=== PATIENT | female | born 1990 | race Caucasian/White ===

== ENCOUNTER → 2019-09-03 12:00 | Outpatient (CLI) | payer BC, SELFPAY ==
--- NOTE | ~2019-09-03 | MR_ITS ---
EXAMINATION: MR brain/brain stem wo/w con DATE: 09/03/2019 13:16 INDICATION: Aphasia. Dizziness. TECHNIQUE: Magnetic resonance imaging (MRI) of the brain and brainstem was performed without and with 10 mL MultiHance intravenous contrast. Sequences included sagittal and axial T1-weighted FLAIR, axia l T1-weighted FSE, axial diffusion-weighted FS EPI, sagittal T2-weighted FLAIR, axial T2*-weighted GR E, axial T2-weighted FLAIR Propeller, and axial T2-weighted Propeller. Postcontrast sequences include d axial, coronal, and sagittal T1-weighted FSE. Apparent diffusion coefficient (ADC) maps were create d. COMPARISON: None. FINDINGS: There is no intracranial hemorrhage, acute infarction, or abnormal intracranial mass lesion . 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 The ventricles are normal in size. The paranasal sinuses are clear. The orbits are normal. The mastoid air cells are normal. IMPRESSION: 1. Normal brain. Reviewed, dictated and finalized at location A. [facility] IMPRESSION: 1. Normal brain.
[2019-09-03 12:52] LABS: Estimated Glomerular Filt Rate > 60
== END ==
PROVIDERS: PCP Emergency Medicine; Visit Provider Emergency Medicine
DX: R42 Dizziness and giddiness (principal); R47.01 Aphasia; R25.1 Tremor, unspecified; R63.4 Abnormal weight loss; H53.9 Unspecified visual disturbance
CPT/HCPCS: 36415; 70553; A9577